=== PATIENT | female | born 1960 | race Caucasian/White ===

== ENCOUNTER 2016-12-09 02:36 | Emergency (ER) | payer MEDICARE ==
[2016-12-09 03:59] LABS: BASOPHILS # (AUTO) 0.2 10^3/uL (0.0-0.1); BASOPHILS % (AUTO) 2.6 %; EOSINOPHILS # (AUTO) 0.2 10^3/uL (0.0-0.7); EOSINOPHILS % (AUTO) 2.1 %; HCT - HEMATOCRIT 42.2 % (37.0-47.0); HGB - HEMOGLOBIN 14.3 g/dL (12.0-16.0); LYMPHOCYTES # (AUTO) 1.2 10^3/uL (1.5-3.5); LYMPHOCYTES % (AUTO) 14.4 %; MEAN CORPUSCULAR HGB CONC 33.9 g/dL (32.0-36.0); MEAN CORPUSCULAR VOLUME 88.4 fL (81.0-99.0); MEAN PLATELET VOLUME 7.1 fL (7.9-10.8); MONOCYTES # (AUTO) 0.6 10^3/uL (0.0-1.0); MONOCYTES % (AUTO) 7.3 %; NEUTROPHILS # (AUTO) 6.1 10^3/uL (1.5-6.6); NEUTROPHILS % (AUTO) 73.6 %; RED BLOOD COUNT 4.77 10^6/uL (4.20-5.40); RED CELL DISTRIBUTION WIDTH 12.4 % (12.0-15.0); UNCORRECTED WHITE BLOOD COUNT 8.3 x10^3/uL; WHITE BLOOD COUNT 8.3 x10^3/uL (4.8-10.8)
[2016-12-09 04:06] LABS: CALCIUM 9.4 mg/dL (8.5-10.3); CREATININE 0.7 mg/dL (0.4-1.0); POTASSIUM 4.1 mmol/L (3.5-5.0); URIC ACID 4.3 mg/dL (2.6-7.2)
[2016-12-09] MEDS ORDERED: KETOROLAC 60 MG/2 ML VIAL IM STA (04:58)
[2016-12-09] MEDS ORDERED: oxyCOD/ACETAMIN 5 MG/325 MG TABLET PO STA (04:58)
[2016-12-09 05:00] LABS: BILIRUBIN,URINE NEGATIVE (NEGATIVE)
[2016-12-09 05:04] LABS: UA CHARGE (STRIP ONLY) YES; UR CULTURE IF IND NOT INDICATED
[2016-12-09] MEDS ORDERED: oxyCOD/ACETAMIN 5 MG/325 MG TABLET PO ONE (05:04)
[2016-12-09] MEDS ORDERED: KETOROLAC 60 MG/2 ML VIAL ONE (05:04)
--- NOTE | 2016-12-09 05:06 | ED Physician Documentation ---
History of Present Illness - Stated complaint Stated Complaint: R FOOT PX - Chief complaint Chief Complaint: Ext Problem - History obtained from History obtained from: Patient - Additonal information Additional information: Patient is a 56-year-old female who for the most part is very healthy. She presents with a complaint of right-sided ankle pain onset a few hours ago. She denies any obvious injury to the ankle. This pain is worse with ambulation and with palpation. She denies any other abnormality and has no other complaints. There is no chest pain, shortness of breath, nausea, vomiting constipation diarrhea, or any other concerning pain complaint. She has no history of any rheumatologic problems and there is no history of gout personally although she has had a family history of gout. Review of systems: For pertinent positive and negatives in the review of systems please see history of present illness. Otherwise all other systems have been reviewed and are negative. Dragon disclaimer: Parts of this medical record were created using voice recognition technology. Because of the inherent limitations of this system occasional same sounding word substitutions do occur and persist despite proofreading. Please read the document for context. Review of Systems Ten Systems: 10 systems reviewed and negative Constitutional: denies: Fever, Chills, Myalgias Cardiac: denies: Chest pain / pressure, Palpitations Respiratory: denies: Dyspnea, Cough GI: denies: Abdominal Pain, Abdominal Swelling, Nausea, Vomiting Musculoskeletal: reports: Extremity pain, Joint pain, Extremity swelling, Pain with weight bearing PD PAST MEDICAL HISTORY - Past Medical History Past Medical History: Yes Respiratory: COPD - Past Surgical History Past Surgical History: No - Present Medications Home Medications: Ambulatory Orders Medication Instructions Recorded Confirmed Ibuprofen 600 mg PO TID PRN #14 tablet 12/09/16 Tramadol HCl 50 mg PO Q8HR PRN #14 tablet 12/09/16 - Allergies Allergies/Adverse Reactions: Allergies Allergy/AdvReac Type Severity Reaction Status Date / Time Penicillins Allergy Rash Verified 12/09/16 02:49 Sulfa (Sulfonamide AdvReac Cramps Verified 12/09/16 02:50 Antibiotics) - Social History Does the pt smoke?: No Smoking Status: Never smoker Does the pt drink ETOH?: No Does the pt have substance abuse?: No - Immunizations Immunizations are current?: Yes - POLST Patient has POLST: No PD ED PE NORMAL - General General: Alert and oriented X 3, No acute distress, Well developed/nourished - Cardiac Cardiac: RRR - Respiratory Respiratory: Clear bilaterally - Abdomen Abdomen: Normal bowel sounds - Derm Derm: Normal color, Warm and dry - Extremities Extremities: Other (On examination the patient is tender over the right talofibular ligaments. There is no appreciable warmth, redness or any obvious skin changes in the affected area. The rest of the calf, ankle, calcaneus midfoot and forefoot are normal. Pulses are 2+ in the skin coloration is normal ) Results - Vitals Vitals: Vital Signs - 24 hr 12/09/16 02:45 Temperature 36.0 C L Heart Rate 77 Respiratory 16 Rate Blood Pressure 102/62 O2 Saturation 98 Oxygen O2 Source Room air - Labs Labs: Laboratory Tests 12/09/16 12/09/16 03:48 03:48 WBC 8.3 RBC 4.77 Hgb 14.3 Hct 42.2 MCV 88.4 MCH 30.0 MCHC 33.9 RDW 12.4 Plt Count 263 MPV 7.1 L Neut # 6.1 Lymph # 1.2 L [place] # 0.6 Eos # 0.2 Baso # 0.2 H Absolute Nucleated RBC 0.00 Nucleated RBCs 0.0 Sodium 137 Potassium 4.1 Chloride 100 L Carbon Dioxide 29 Anion Gap 8.0 BUN 16 Creatinine 0.7 Estimated GFR (MDRD) 86 L Glucose 106 H Uric Acid 4.3 Calcium 9.4 PD MEDICAL DECISION MAKING - ED course ED course: Patient presents with pain and tenderness of the right talofibular ligaments. Clinically it appears to be a sprain given the location however the patient has no obvious known injury although she has been walking around the house a lot today been undergoing construction. I did do some routine testing to make sure it is not gout. Her CBC electrolytes and uric acid are normal. Radiographically the ankle is normal. The limitations Of uric acid testing were discussed with the patient. She understands that I cannot rule out gout but clinically my pretest probability is lower I think she probably has a simple talofibular ligamentous sprain of the right ankle. Disposition: To home Clinical impression: 1. Pain and tenderness of the right talofibular ligament 2. Suspect acute sprain-doubt gouty arthritis Departure - Departure Disposition: 01 Home, Self Care Clinical Impression: Ankle pain, right Qualifiers: Chronicity: acute Qualified Code(s): M25.571 - Pain in right ankle and joints of right foot Condition: Good Instructions: ED Sprain Ankle Follow-Up: Rony Guthrie ARNP [Primary Care Provider] - Prescriptions: Tramadol HCl 50 mg PO Q8HR PRN #14 tablet PRN Reason: Pain Ibuprofen 600 mg PO TID PRN #14 tablet PRN Reason: Pain
--- NOTE | 2016-12-09 05:15 | XRAY Preliminary Report ---
Exam: XR Ankle 3 View RT IMPRESSION: 1. Soft tissue swelling. No acute osseous abnormality seen. [facility] SITE ID: [id number]
--- NOTE | 2016-12-09 05:18 | XRAY Report ---
EXAM: RIGHT ANKLE RADIOGRAPHY EXAM DATE: 12/09/2016 04:40 AM. CLINICAL HISTORY: Pain and swelling. COMPARISON: None. TECHNIQUE: 3 views. FINDINGS: Bones: No fracture seen. No focal area of bone destruction. Joints: No dislocation. Ankle mortise appears intact. No definite joint effusion. Soft Tissues: Mild soft tissue swelling. IMPRESSION: 1. Soft tissue swelling. No acute osseous abnormality seen. [facility] Referring Provider Line: [phone] SITE ID: [id number]
[2016-12-09 05:52] VITALS: BP 110/70
== END 2016-12-09 05:52 | disposition home or self-care (01) ==
LOC: ED 02:36
DX: M25.571 Pain in right ankle and joints of right foot (principal)
CPT/HCPCS: 36415; 73610; 80048; 81003; 84550; 85025; 96372; 99283; A9270; 81001; 87086